=== PATIENT | female | born 1955 | race Caucasian/White ===

== ENCOUNTER 2018-08-05 22:07 | Inpatient (IN) | payer MEDICARE ==
[~2018-08-05] VITALS: Ht 152.4 cm; Wt 74.0 kg
[~2018-08-05 22:07] MED LIST: ASPI325T80 PO; CANA300T PO; COLE625T12 PO; GABA300C10 PO; INSU100C5 SQ-INSULIN; INSU100V13 INJ; IRBE300T16 PO; LEVO750T26 PO; LIRA0.6P2 INJ; MECL12.5 PO; METF10002 PO; PRAV40TA2 PO; TRAM50TA2 PO; VENL75TA PO
--- NOTE | 2018-08-05 22:28 | NUR ---
PT PRESENTED WITH C/O LOW BLOOD SUGARS SINCE July, NOW FEELING SHAKY AND UNSTEADY ON FEET. BROADLOOM WEAVER BLOOD SUGAR 146. MONITORS APPLIED, SIDERAILS UP X2, CALL LIGHT WITHIN REACH
[2018-08-05] MEDS ORDERED: GLYB1.252 PO (22:37)
[2018-08-05] MEDS ORDERED: EMPA1TAB9 PO (22:37)
[2018-08-05] MEDS ORDERED: ASPI-515 PO (22:37)
[2018-08-05] MEDS ORDERED: INSU100V8 SQ ×2 (22:37)
[2018-08-05 22:57] LABS: BASOPHILS # (AUTO) 0.07 x10^3/uL (0-0.1); BASOPHILS % (AUTO) 1 % (0-1); EOSINOPHILS # (AUTO) 0.17 x10^3/uL (0-0.4); EOSINOPHILS % (AUTO) 2 % (1-7); LYMPHOCYTES # (AUTO) 2.77 x10^3/uL (1-3.4); LYMPHOCYTES % (AUTO) 29 % (22-44); MD NO; MEAN CORPUSCULAR HEMOGLOBIN 29.3 pg (27.0-34.8); MEAN CORPUSCULAR HGB CONC 32.6 g/dL (32.4-35.8); MEAN CORPUSCULAR VOLUME 89.7 fL (80-100); MEAN PLATELET VOLUME 8.9 fL (7.4-10.4); MONOCYTES # (AUTO) 0.64 x10^3/uL (0.2-0.8); MONOCYTES % (AUTO) 7 % (2-9); NEUTROPHILS # (AUTO) 6.03 x10^3/uL (1.8-6.8); NEUTROPHILS % (AUTO) 62 % (42-75); PLATELET COUNT 260 x10^3/uL (130-400); RED BLOOD COUNT 4.67 x10^6/uL (3.82-5.3); RED CELL DISTRIBUTION WIDTH 14.5 % (9.6-15.2)
[2018-08-05 23:10] LABS: ALANINE AMINOTRANSFERASE 21 U/L (12-78); ANION GAP 8 mmol/L (5-15); CALCIUM 9.6 mg/dL (8.5-10.1); CHLORIDE 107 mmol/L (98-107)
[2018-08-05 23:17] LABS: ALKALINE PHOSPHATASE 81 U/L (45-117); BILIRUBIN,TOTAL 0.3 mg/dL (0.2-1.0); CREATININE 0.97 mg/dL (0.55-1.02); T4 (THYROXINE) 9.2 mcg/dL (4.8-13.9); TOTAL PROTEIN 7.3 g/dL (6.4-8.2); TROPONIN I < 0.015 ng/mL (0.000-0.045)
--- NOTE | 2018-08-05 23:17 | NUR ---
PT UP TO RR WITH STEADY GAIT
[2018-08-05 23:36] LABS: CULTURE INDICATED? YES; MICROSCOPIC INDICATED
--- NOTE | 2018-08-05 23:43 | NUR ---
PT RESTING ON GURNEY, FAMILY AT BEDSIDE, DENIES NEEDS, MONITORS IN PLACE, CALL LIGHT WITHIN REACH. AWAITING CT RESULT
[2018-08-06] MEDS ORDERED: CEFTRIAXONE PMX 1GM/50ML 50 ML IVPB ONE (00:30)
[2018-08-06] MEDS ORDERED: SODIUM CHLORIDE FLUSH 10ML SYR IVF ONE (00:30)
[2018-08-06 00:36] LABS: HEMOGLOBIN A1C 7.6 % (4.2-6.3)
[2018-08-06] MEDS ORDERED: CEFTRIAXONE PMX 1GM/50ML 50 ML ONE (00:40)
--- NOTE | 2018-08-06 00:52 | NUR ---
PT RESTING CALMLY, IV ABX INFUSING, MONITORS IN PLACE, CALL LIGHT WITHIN REACH. ADMIT MD AT BEDSIDE FOR EVAL. AWAITING ROOM FOR ADMIT
[2018-08-06] MEDS ORDERED: ACETAMINOPHEN 325 MG TABLET PO PRN (01:30)
[2018-08-06] MEDS ORDERED: ONDANSETRON 2MG/ML, 2ML IVPush PRN (01:30)
[2018-08-06 01:41] VITALS: BP 108/67
[2018-08-06] MEDS: INSULIN GLARGINE 100 UNITS/ML, PEN SQ-INSULIN SCH ×3 (02:10→20:56)
[2018-08-06 06:54] VITALS: BP 116/70
[2018-08-06] MEDS: INSULIN LISPRO 100 UNITS/ML, PEN SQ-INSULIN SCH ×4 (08:07→20:55)
[2018-08-06 08:38] LABS: MICROSCOPIC INDICATED
[2018-08-06] MEDS ORDERED: INSULIN GLARGINE 100 UNITS/ML, PEN SQ-INSULIN SCH (09:00)
[2018-08-06] MEDS: GABAPENTIN 300 MG CAPSULE PO SCH ×2 (09:40→16:44)
[2018-08-06] MEDS: ASPIRIN 325 MG TABLET EC PO SCH (09:40)
[2018-08-06 12:16] VITALS: BP 119/74
[2018-08-06] MEDS: ENOXAPARIN 40 MG/0.4 ML SQ SCH (12:23)
[2018-08-06] MEDS ORDERED: CHOL20002 PO (19:15)
[2018-08-06] MEDS ORDERED: SOLI10TA2 PO (19:15)
[2018-08-06] MEDS ORDERED: SIMV20TA3 PO (19:15)
[2018-08-06] MEDS ORDERED: LOSA25TA25 PO (19:15)
[2018-08-06 19:30] VITALS: BP 104/63
[2018-08-06] MEDS: GABAPENTIN 400 MG CAPSULE PO SCH ×2 (20:54→21:00)
[2018-08-06] MEDS: SIMVASTATIN 20 MG TABLET PO SCH (20:54)
[2018-08-06] MEDS: SODIUM CHLORIDE NASAL SPRAY 45ML BOTTLE NAS SCH (21:40)
[2018-08-07] MEDS: CEFTRIAXONE PMX 1GM/50ML 50 ML IV SCH (00:29)
[2018-08-07 01:57] VITALS: BP 99/61
[2018-08-07 05:05] LABS: ANION GAP 5 mmol/L (5-15); CHLORIDE 110 mmol/L (98-107); CHOLESTEROL, TOTAL 156 mg/dL (140-239); CREATININE 0.67 mg/dL (0.55-1.02); TRIGLYCERIDES 108 mg/dL (50-200); VLDL CHOLESTEROL 22 mg/dL (0-25)
[2018-08-07 05:07] LABS: CHOL/HDL RATIO 3.3; HDL CHOL % 31 % (28-40); HDL CHOLESTEROL (DIRECT) 48 mg/dL (40-60); LDL CHOLESTEROL,CALCULATED 86 mg/dL (54-169); LDL/HDL RATIO 1.8 (0.5-3.0); MEAN CORPUSCULAR HEMOGLOBIN 29.1 pg (27.0-34.8); MEAN CORPUSCULAR HGB CONC 32.3 g/dL (32.4-35.8); MEAN CORPUSCULAR VOLUME 90.1 fL (80-100); MEAN PLATELET VOLUME 8.6 fL (7.4-10.4); PLATELET COUNT 267 x10^3/uL (130-400); RED BLOOD COUNT 4.79 x10^6/uL (3.82-5.3); RED CELL DISTRIBUTION WIDTH 15.5 % (9.6-15.2)
[2018-08-07] MEDS: ASPIRIN 325 MG TABLET EC PO SCH (05:33)
[2018-08-07 06:02] LABS: BASOPHILS # (AUTO) 0.02 x10^3/uL (0-0.1); BASOPHILS % (AUTO) 0 % (0-1); EOSINOPHILS # (AUTO) 0.28 x10^3/uL (0-0.4); EOSINOPHILS % (AUTO) 4 % (1-7); LYMPHOCYTES % (AUTO) 39 % (22-44); MONOCYTES # (AUTO) 0.59 x10^3/uL (0.2-0.8); MONOCYTES % (AUTO) 9 % (2-9); NEUTROPHILS # (AUTO) 3.03 x10^3/uL (1.8-6.8); NEUTROPHILS % (AUTO) 47 % (42-75)
[2018-08-07 06:07] LABS: MD SCAN
[2018-08-07 06:58] VITALS: BP 111/69
[2018-08-07] MEDS: INSULIN LISPRO 100 UNITS/ML, PEN SQ-INSULIN SCH ×4 (07:00→22:17)
[2018-08-07] MEDS: GABAPENTIN 400 MG CAPSULE PO SCH ×3 (08:45→20:23)
[2018-08-07] MEDS: INSULIN GLARGINE 100 UNITS/ML, PEN SQ-INSULIN SCH (08:46)
[2018-08-07] MEDS: SODIUM CHLORIDE NASAL SPRAY 45ML BOTTLE NAS SCH ×2 (08:52→20:26)
[2018-08-07] MEDS ORDERED: LOSARTAN 25MG TABLET PO SCH (09:00)
[2018-08-07] MEDS: ENOXAPARIN 40 MG/0.4 ML SQ SCH (11:37)
[2018-08-07 12:10] VITALS: BP 105/70
[2018-08-07 19:15] VITALS: BP 121/73
[2018-08-07] MEDS: GlyBURIDE 5 MG TABLET PO SCH (20:23)
[2018-08-07] MEDS: SIMVASTATIN 20 MG TABLET PO SCH (20:24)
[2018-08-08] MEDS: CEFTRIAXONE PMX 1GM/50ML 50 ML IV SCH (00:26)
[2018-08-08 01:32] VITALS: BP 107/67
[2018-08-08] MEDS: ASPIRIN 325 MG TABLET EC PO SCH (05:20)
[2018-08-08] MEDS: INSULIN LISPRO 100 UNITS/ML, PEN SQ-INSULIN SCH ×2 (07:00→11:59)
[2018-08-08 07:08] VITALS: BP 107/67
[2018-08-08] MEDS: SODIUM CHLORIDE NASAL SPRAY 45ML BOTTLE NAS SCH (09:00)
[2018-08-08] MEDS ORDERED: LOSARTAN 25MG TABLET PO SCH (09:00)
[2018-08-08] MEDS: GlyBURIDE 5 MG TABLET PO SCH (10:35)
[2018-08-08] MEDS: GABAPENTIN 400 MG CAPSULE PO SCH (10:35)
[2018-08-08 10:42] VITALS: BP 130/79
[2018-08-08] MEDS: ENOXAPARIN 40 MG/0.4 ML SQ SCH (12:00)
[2018-08-08] MEDS ORDERED: CEFD300C37 PO (12:03)
[2018-08-08 12:21] VITALS: BP 124/77
== END 2018-08-08 14:55 | disposition home or self-care (01) | DRG 637 ==
LOC: ED 22:54 → EDIP 08-06 00:40 → 4WST 08-06 01:32 → DCLOUNGE 08-08 14:47
PROVIDERS: ADMIT Internal Medicine; ATTEND Internal Medicine
DX: E11.649 Type 2 diabetes mellitus with hypoglycemia without coma (principal); G93.41 Metabolic encephalopathy; N30.00 Acute cystitis without hematuria; E78.5 Hyperlipidemia, unspecified; G89.29 Other chronic pain; I10 Essential (primary) hypertension; E86.0 Dehydration; F32.9 Major depressive disorder, single episode, unspecified; E11.42 Type 2 diabetes mellitus with diabetic polyneuropathy; E11.65 Type 2 diabetes mellitus with hyperglycemia; M79.7 Fibromyalgia; Z79.4 Long term (current) use of insulin; Z79.82 Long term (current) use of aspirin; Z83.3 Family history of diabetes mellitus; Z86.73 Personal history of transient ischemic attack (TIA), and cerebral infarction without residual deficits; Z82.3 Family history of stroke; Z98.51 Tubal ligation status; Z79.899 Other long term (current) drug therapy; Z79.1 Long term (current) use of non-steroidal anti-inflammatories (NSAID)
CPT/HCPCS: 36415; 70450; 70551; 71045; 80048; 80053; 80061; 81001; 82962; 83036; 84436; 84443; 84484; 85025; 87040; 87077; 87086; 87186; 93005; 93306; 93880; 96374; G0378; J0696; J1650; 92523-GN; J1815

== ENCOUNTER 2020-07-04 14:36 | Emergency (ER) | payer MEDICARE ==
[~2020-07-04] VITALS: Ht 152.4 cm; Wt 68.0 kg
[~2020-07-04 14:36] MED LIST changes: +ASPI-963 PO; +CEFD300C37 PO; +CHOL20002 PO; +EMPA1TAB9 PO; +GLYB1.252 PO; +INSU100V8 SQ; -IRBE300T16 PO; +IRBE300T8 PO; +LOSA25TA25 PO; +SIMV20TA19 PO; +SOLI10TA2 PO
[2020-07-04 15:08] LABS: BASOPHILS % (AUTO) 0 % (0-1); EOSINOPHILS % (AUTO) 0 % (1-7); LYMPHOCYTES % (AUTO) 9 % (22-44); MEAN CORPUSCULAR HEMOGLOBIN 29.8 pg (27.0-34.8); MEAN CORPUSCULAR HGB CONC 33.3 g/dL (32.4-35.8); MEAN PLATELET VOLUME 8.6 fL (7.4-10.4); MONOCYTES % (AUTO) 8 % (2-9); NEUTROPHILS % (AUTO) 82 % (42-75); PLATELET COUNT 260 x10^3/uL (130-400); RED BLOOD COUNT 4.46 x10^6/uL (3.82-5.3); RED CELL DISTRIBUTION WIDTH 13.9 % (9.6-15.2)
[2020-07-04 15:10] LABS: MD NO
[2020-07-04 15:20] LABS: ALBUMIN 3.5 g/dL (3.4-5.0); ANION GAP 7 mmol/L (5-15); CHLORIDE 104 mmol/L (98-107)
[2020-07-04 15:25] LABS: ALANINE AMINOTRANSFERASE 29 U/L (12-78); ALKALINE PHOSPHATASE 88 U/L (45-117); BILIRUBIN,TOTAL 0.4 mg/dL (0.2-1.0); CREATININE 0.92 mg/dL (0.55-1.02); TOTAL PROTEIN 7.4 g/dL (6.4-8.2)
[2020-07-04 17:49] VITALS: BP 119/58
--- NOTE | 2020-07-04 18:04 | NUR ---
PT REC'VD DISCHARGE INSTRUCTIONS AND EDUCATION. PT HAD NO FURTHER QUESTIONS. PT AMBULATED TO DC AREA, STEADY GAIT.
== END 2020-07-04 18:07 | disposition home or self-care (01) ==
LOC: ED 18:04
DX: R51.9 Headache, unspecified (principal); R53.1 Weakness; R53.83 Other fatigue; R10.9 Unspecified abdominal pain; R94.31 Abnormal electrocardiogram [ECG] [EKG]; E11.9 Type 2 diabetes mellitus without complications; Z86.73 Personal history of transient ischemic attack (TIA), and cerebral infarction without residual deficits
CPT/HCPCS: 36415; 70450; 71045; 80053; 83605; 85025; 93005; 99285